=== PATIENT | male | born 1965 | race Caucasian/White ===

== ENCOUNTER 2017-01-05 20:18 | Emergency (ER) | payer MEDICARE ==
[~2017-01-05] VITALS: Ht 175.3 cm; Wt 70.3 kg
[~2017-01-05 20:18] MED LIST: ATOR20TA; CLOP75TA2
[2017-01-05 20:20] VITALS: BP 138/85
[2017-01-05] MEDS ORDERED: IBUPROFEN 600 MG TABLET PO ONE ×2 (20:51→21:00)
== END 2017-01-05 21:09 | disposition home or self-care (01) ==
LOC: ER 20:18
DX: B08.8 Other specified viral infections characterized by skin and mucous membrane lesions (principal)
CPT/HCPCS: 99282; A4606; Z7610